=== PATIENT | male | born 1990 | race Caucasian/White ===

== ENCOUNTER 2023-10-20 20:13 | Emergency (ER) | payer BC, SELFPAY ==
--- NOTE | 2023-10-20 20:16 | ED_ITS ---
<Statement entered by Jameel Cazares MD - 10/20/23 22:29> I was consulted by the JOHANNA, and we discussed the complexity of the problems being addressed. I approved the treatment and management plan for this patient's care in the emergency department, thus performing a substantive portion of the medical decision making. Jameel Cazares MD Discharge Plan Disposition Patient Disposition: Home, Self-Care Condition: Good Prescriptions Prescriptions: New ondansetron 4 mg tablet,disintegrating 4 mg PO Q6H PRN (Reason: nausea and vomiting) Qty: 10 0RF No Action rivaroxaban 15 MG tablet 15 mg PO BID 21 Days Qty: 42 0RF Referrals Follow up/Referrals: Dimas Guy MD [Primary Care Provider] - See instructions Activity Restrictions/Add. Instructions Additional Instructions/Restrictions: Follow-up with PCP this week for lab recheck or as needed. Return to emergency department for any worsening signs or symptoms as needed. Clinical Impressions Clinical Impression: Nausea vomiting and diarrhea Instructions Patient Instructions: DI for Acute Abdominal Pain Discharge ED Provider: Jameel Cazares General Adult HPI General Chief complaint: Abdominal Pain Stated complaint: vomiting, diarrhea, abd pain, poss dehydration Time Seen by Provider: 10/20/23 20:16 History of Present Illness HPI narrative: Patient presents for evaluation of nausea vomiting diarrhea abdominal pain. Patient gives a 4-hour history of nausea vomiting and diarrhea to many times to count in the last 4 hours. Patient also reports that his entire abdomen hurts but he is focally tender in the right lower quadrant currently. Related Data Previous Rx's Medication Instructions Recorded rivaroxaban 15 mg tablet 15 mg PO BID 21 days #42 tabs 01/08/19 ondansetron 4 mg disintegrating 4 mg PO Q6H PRN nausea and 10/20/23 tablet vomiting #10 tabs Allergies Allergy/AdvReac Type Severity Reaction Status Date / Time Penicillins Allergy Verified 05/30/18 15:05 [facility] Disclaimer: The information contained in this section may have been updated after the patient was seen, as this information can be updated by other users. Social History Smoking Status: Never smoker alcohol intake: never current occupational status: employed Travel in the last 8 weeks: None household members: family housing: house ROS Obtained: Yes Systems reviewed as appropriate & no additional complaints except as documented Physical Exam General General appearance: alert, in no apparent distress and anxious Respiratory Respiratory exam: Present normal lung sounds bilaterally and respiratory distress Cardiovascular Cardiovascular exam: Present normal rhythm and tachycardia Abdominal Exam Abdominal exam: Present soft, tenderness (Patient has mild tenderness to palpation everywhere but focally so in the right lower quadrant currently) and normal bowel sounds; Absent guarding, rebound or rigidity Extremities Exam Extremities exam: Present full ROM and tenderness (Muscle cramps in his hands and feet); Absent normal inspection (Patient has carpopedal spasm currently) Back Exam Back exam: Present normal inspection and full ROM; Absent tenderness Neurological Exam Neurological exam: Present alert and oriented X3 Psychiatric Psychiatric exam: Present agitated and anxious Medical Decision Making Medical Records Medical records reviewed: Yes I reviewed the patient's medical records. Tadeo Inquiry Pt receiving controlled substance: No Vital Signs: 10/20/23 20:22 Temperature 98.9 F Temperature Source Oral Pulse Rate [Apical] 134 H Respiratory Rate 22 Blood Pressure [Right Arm] 103/68 L Blood Pressure Mean [Right Arm] 79 Blood Pressure Source [Right Arm] Automatic Cuff Blood Pressure Position [Right Arm] Sitting 02 Sat by Pulse Oximetry 100 Oxygen Delivery Method Room Air Lab Data Lab results reviewed: Yes I reviewed the patient's lab results. Lab Results 10/20/23 20:20: VBG pH 7.39, VBG pCO2 44.5, VBG pO2 32.4, VBG HCO3 26.4, VBG Total CO2 27.8 H, VBG O2 Saturation 60.9, VBG Base Excess 1.4, VBG Lactic Acid 4.2 H 10/20/23 20:30: WBC 14.4 H, RBC 6.03, Hgb 18.6 H, Hct 55.0 H, MCV 91.2, MCH 30.3, MCHC 33.2, RDW 14.2, Plt Count 311, MPV 8.2, Neut % (Auto) 89.5 H, Lymph % (Auto) 3.9 L, Jay % (Auto) 4.1, Eos % (Auto) 2.1, Baso % (Auto) 0.4, Neut # (Auto) 12.9 H, Lymph # (Auto) 0.6 L, Jay # (Auto) 0.6, Eos # (Auto) 0.3, Baso # (Auto) 0.1, Total Counted 100, Neutrophils % (Manual) 87 H, Lymphocytes % (Manual) 8 L, Atypical Lymphs % 3.0, Monocytes % (Manual) 2, Platelet Estimate Normal, RBC Morphology Normal, Lactate 3.5 H 10/20/23 21:15: Sodium 140, Potassium 3.2 L, Chloride 98, Carbon Dioxide 24, A nion Gap 21.2 H, BUN 14, Creatinine 1.20, Estimated Creat Clear 92, Estimated GFR 71, Est GFR ( Amer) 85, Glucose 119 H, Calcium 9.5, Magnesium 1.7, Total Bilirubin 1.3, AST 32, ALT 30, Alkaline Phosphatase 99, Total Creatine Kinase 64, Total Protein 7.8, Albumin 4.9, Globulin 2.9, Albumin/Globulin Ratio 1.7, Lipase 66 10/20/23 21:35: Urine Color Yellow, Urine Appearance Clear, Urine pH 7.0, Ur Specific Kress 1.010, Urine Protein 1+, Urine Glucose (UA) Negative, Urine Ketones 1+, Urine Blood Negative, Urine Nitrate Negative, Urine Bilirubin 1+ A, Urine Urobilinogen 0.2, Ur Leukocyte Esterase Negative, Urine RBC None, Urine WBC 3-5, Ur Squamous Epith Cells Occasional, Urine Bacteria 1+ 10/20/23 20:30 10/20/23 21:15 Orders (Tests/Meds): ED MEDICATIONS Generic Name Dose Route Start Last Admin Trade Name Freq PRN Reason Stop Dose Admin Lactated Ringer's 2,260 mls @ 1,130 mls/hr 10/20/23 21:08 10/20/23 21:17 Lactated Ringer's 1000 Ml Bag 30 ml/kg infuse over 2 hr (2260 ml) 10/20/23 23:07 1,130 mls/hr IV Administration .Q2H ONE Potassium Chloride 60 meq 10/20/23 22:05 Potassium Chloride 20meq Tab PO 10/20/23 22:06 ONCE ONE Sodium Chloride 10 ml 10/20/23 20:23 Sodium Chloride 0.9% 10ml Vial IV 11/19/23 20:22 NEEDED PRN to Dilute Lorazepam inj Sodium Chloride 10 ml 10/20/23 20:46 10/20/23 20:48 Sodium Chloride 0.9% 10ml Syr (Rad Only) IV 11/19/23 20:45 10 ml NEEDED PRN Administration Maintain IV Site Discontinued Medications Generic Name Dose Route Start Last Admin Trade Name Freq PRN Reason Stop Dose Admin Acetaminophen 1,000 mg 10/20/23 20:19 10/20/23 20:53 Acetaminophen 1,000mg/100ml Vial IV 10/20/23 20:20 1,000 mg ONCE ONE Administration Lactated Ringer's 1,000 mls @ 999 mls/hr 10/20/23 20:19 10/20/23 21:09 Lactated Ringer's 1000 Ml Bag IV 10/20/23 21:19 Not Given .Q1H1M ONE Iopamidol 75 ml 10/20/23 20:46 10/20/23 20:48 Iopamidol-370 (76%);100ml Bottle IV 10/20/23 20:47 75 ml ONCE ONE Administration Ketorolac Tromethamine 15 mg 10/20/23 20:19 10/20/23 20:53 Ketorolac 30mg/Ml Vial IV 10/20/23 20:20 15 mg ONCE ONE Administration Lorazepam 1 mg 10/20/23 20:23 10/20/23 21:07 Lorazepam 2mg/Ml Vial IV 10/20/23 20:24 Not Given ONCE ONE Ondansetron HCl 4 mg 10/20/23 20:19 10/20/23 20:50 Ondansetron 4mg Odt SL 10/20/23 20:20 Not Given ONCE ONE Ondansetron HCl 4 mg 10/20/23 20:51 10/20/23 20:53 Ondansetron 4mg/2ml Vial IV 10/20/23 20:52 4 mg ONCE ONE Administration ORDERS Category Date Time Status CT abdomen pelvis w con Stat Cat Scan 10/20/23 20:23 Completed Activated Partial Thrombo Time Stat Lab 10/20/23 21:10 Ordered CBC w/Auto Diff [Complete Blood Count Auto Diff] Stat Lab 10/20/23 20:30 Completed CK [Creatine Kinase] Stat Lab 10/20/23 21:15 Results CMP [Comprehensive Metabolic Panel] Stat Lab 10/20/23 21:15 Results Diarrhea 23 Panel, PCR Stat Lab 10/20/23 20:36 Received Lactic Acid Stat Lab 10/20/23 20:30 Completed Lipase Stat Lab 10/20/23 21:15 Completed Magnesium Stat Lab 10/20/23 21:15 Completed Prothrombin Time INR Stat Lab 10/20/23 21:10 Ordered TSH [Thyroid Stimulating Hormone] Stat Lab 10/20/23 21:15 Results UA [Urinalysis and Microscopic] Stat Lab 10/20/23 21:35 Completed Blood Culture Stat Micro 10/20/23 21:10 Ordered VBG [Venous Blood Gas] Stat RT 10/20/23 20:20 Completed Medical Decision Narrative: In summary patient is a 33-year-old male who presents to the emergency department for evaluation of nausea vomiting diarrhea abdominal pain. Patient is tachycardic normotensive upon arrival, afebrile. Physical exam is remarkable for carpopedal spasm currently abdominal pain diffusely with no rebound guarding or rigidity with normal bowel sounds. Differential diagnosis includes acute gastroenteritis versus acute appendicitis versus hyperventilation versus severe electrolyte depletion etc. Initial workup will be conducted with hematologic labs CT scan abdomen pelvis with contrast. Initial interventions include crystalloid bolus Toradol Tylenol Zofran and Ativan. Initial workup reviewed by me shows a slightly elevated white count but patient is volume contracted as well with a hemoglobin greater than 18, and patient had low potassium of 3.2 otherwise his hematologic labs are nonactionable and my informal read of the CT scan of the abdomen pelvis shows nonspecific enteritis with radiologist read pending. Upon repeat evaluation patient has had complete resolution of his carpopedal spasm and his nausea and vomiting has abated significantly as well. Patient is tolerating p.o. and his heart rate has come down to under 100. Given this patient is appropriate for discharge for home with prescription for Zofran. Critical Care Critical Care Time Critical Care Time: No
[2023-10-20 20:22] VITALS: BP 103/68; PULSE 134; RESP 22; TEMP 37.2; O2SAT 100; BMI 22.3
--- NOTE | 2023-10-20 20:23 | CT_ITS ---
PROCEDURE INFORMATION: Exam: CT Abdomen And Pelvis With Contrast Exam date and time: 10/20/2023 8:36 PM Age: 33 years old Clinical indication: Abdominal pain; Additional info: Acute abdominal pain, nvd TECHNIQUE: Imaging protocol: Computed tomography of the abdomen and pelvis with contrast. Radiation optimization: All CT scans at this facility use at least one of these dose optimization techniques: automated exposure control; mA and/or kV adjustment per patient size (includes targeted exams where dose is matched to clinical indication); or iterative reconstruction. Contrast material: ISOVUE; Contrast volume: 75 ml; Contrast route: IV; COMPARISON: CT ANGIO CHEST 01/08/2019 12:45 FINDINGS: Heart: Tiny pericardial effusion, unchanged. Liver: Low attenuation hepatic lesions measuring up to 4 mm in diameter are incompletely characterized, but are likely cysts. No followup imaging is recommended. Gallbladder and bile ducts: Normal. No calcified stones. No ductal dilation. Pancreas: Normal. No ductal dilation. Spleen: Normal. No splenomegaly. Adrenal glands: Normal. No mass. Kidneys and ureters: Duplex right kidney. Stomach and bowel: Dilated segments of fluid-filled small bowel without a transition point. Bowel wall thickening of portions of small bowel and colon. Liquid fecal contents in the colon, which could correlate with diarrhea clinically. Appendix: Unremarkable appendix. Intraperitoneal space: Unremarkable. No free air. No significant fluid collection. Vasculature: Unremarkable. No abdominal aortic aneurysm. Lymph nodes: Unremarkable. No enlarged lymph nodes. Urinary bladder: Unremarkable as visualized. Reproductive: Unremarkable as visualized. Bones/joints: Unremarkable. No acute fracture. Soft tissues: Unremarkable. IMPRESSION: Enterocolitis.
[2023-10-20 20:40] LABS: Basophils # 0.1 K/mm3 (0-0.2); Basophils % 0.4 % (0.1-2.0); Eosinophils # 0.3 K/mm3 (0.0-0.4); Eosinophils % 2.1 % (0.1-12.0); Lymphocytes # 0.6 K/mm3 (0.7-4.5); Lymphocytes % 3.9 % (10-50); Mean Corpuscular HGB Conc 33.2 g/dL (31.8-35.4); Mean Corpuscular Hemoglobin 30.3 pg (27.0-31.2); Mean Corpuscular Volume 91.2 fl (80-94); Mean Platelet Volume 8.2 fl (7.4-10.4); Monocytes # 0.6 K/mm3 (0.1-1.0); Monocytes % 4.1 % (1.7-9.3); Neutrophils # 12.9 K/mm3 (1.8-7.8); Neutrophils % 89.5 % (37.0-80.0); Platelet Count 311 K/mm3 (142-424); Red Blood Count 6.03 M/mm3 (4.60-6.20); Red Cell Distribution Width 14.2 % (11.5-17.5); White Blood Count 14.4 K/mm3 (4.8-10.8)
[2023-10-20 20:43] LABS: Adenovirus F 40/41, stool Not Detected (NotDetected); Astrovirus Not Detected (NotDetected); Campylobacter Not Detected (NotDetected); Clostridium Difficile A/B, PCR Not Detected (NotDetected); Cryptosporidium Not Detected (NotDetected); Cyclospora Cayetanesis Not Detected (NotDetected); Entamoeba histolytica Not Detected (NotDetected); Enteroaggregative E coli Not Detected (NotDetected); Enteropathogenic E coli Not Detected (NotDetected); Enterotoxigenic E coli Not Detected (NotDetected); Giardia lamblia Not Detected (NotDetected); Plesimonas Shigalloides, PCR Not Detected (NotDetected); Rotavirus A Not Detected (NotDetected); Salmonella, PCR Not Detected (NotDetected); Sapovirus Not Detected (NotDetected); Shiga-like toxin E coli Not Detected (NotDetected); Shigella Enterovasive E coli Not Detected (NotDetected); Vibrio Cholerae Not Detected (NotDetected); Vibrio, PCR Not Detected (NotDetected); Yersinia Entercolitica, PCR Not Detected (NotDetected)
[2023-10-20 20:47] LABS: Lactic Acid 3.5 mmol/L (0.7-2.1); MANUAL DIFFERENTIAL MANUAL DIFFERENTIAL (MANUAL DIFF)
[2023-10-20] MEDS: IOPAMIDOL-370 (76%);100ML BOTTLE 75 ML IV (20:48)
[2023-10-20] MEDS: SODIUM CHLORIDE 0.9% 10ML SYR (RAD ONLY) 10 ML IV (20:48)
[2023-10-20] MEDS: ONDANSETRON 4MG/2ML VIAL 4 MG IV (20:53)
[2023-10-20] MEDS: KETOROLAC 30MG/ML VIAL 15 MG IV (20:53)
[2023-10-20] MEDS: ACETAMINOPHEN 1,000MG/100ML VIAL 1000 MG IV (20:53)
--- NOTE | 2023-10-20 20:58 | PC.NURSE ---
called resp for vbg
[2023-10-20 20:59] LABS: VBG Base Excess 1.4 mmol/L (-2.4-2.3); VBG HCO3 26.4 mmol/L (23-30); VBG Oxygen Saturation 60.9 % (50-70); VBG PCO2 44.5 mmol/L (35-51); VBG PH 7.39 mmol/L (7.31-7.41); VBG PO2 32.4 mmol/L (28-40); VBG Total CO2 27.8 mmol/L (23-27)
[2023-10-20 21:00] LABS: Lactate Venous 4.2 mmol/L (0.4-2.0)
--- NOTE | 2023-10-20 21:09 | PC.NURSE ---
notified of sepsis risk
[2023-10-20] MEDS: LACTATED RINGERS 1000ML 2,260 ML 1130 ML IV (21:17)
[2023-10-20 21:33] LABS: Lymphocytes % 8 % (10-50); Monocytes % 2 % (2-9); Neutrophils % 87 % (42-76); Platelet Estimate Normal; RBC Morphology Normal; Total Cells Counted 100
[2023-10-20 21:37] LABS: Alanine Aminotransferase 30 U/L (12-78); Albumin Level 4.9 g/dl (3.5-5.0); Albumin/Globulin Ratio 1.7 (1.1-1.8); Alkaline Phosphatase 99 U/L (38-126); Anion Gap 21.2 mEq/L (5-15); Aspartate Amino Transferase 32 U/L (17-59); Bilirubin,Total 1.3 mg/dl (0.2-1.3); Blood Urea Nitrogen 14 mg/dl (9-20); Calcium 9.5 mg/dl (8.4-10.2); Carbon Dioxide 24 mmol/L (22.0-30.0); Chloride 98 mmol/L (98-107); Creatine Kinase 64 U/L (55-170); Creatinine Clearance Estimated 92 mL/min (50-200); Estimated Glomerular Filt Rate 71 ml/min (>60); GFR (African American) 85 ML/MIN (>60); Globulin 2.9 g/dL (1.3-3.2); Glucose 119 mg/dl (74-100); Potassium 3.2 mmoL/L (3.5-5.1); Sodium 140 mmol/L (136-145); Total Protein,Serum 7.8 g/dl (6.3-8.2)
[2023-10-20 21:38] LABS: Microscopic, Urine URINE MICROSCOPIC (MICROSCOPIC)
[2023-10-20 21:41] VITALS: BP 99/66; PULSE 103; RESP 14; O2SAT 98
[2023-10-20 21:41] LABS: Appearance,Urine CLEAR (Clear); Blood, Urine Negative (Negative); Color,Urine YELLOW (Yellow); Glucose,Urine (UA) Negative (Negative); Ketones,Urine 1+ (Negative); Leukocyte Esterase,Urine Negative (Negative); Nitrate,Urine Negative (Negative); Protein,Urine 1+ (Negative); Urobilinogen,Urine 0.2 EU/dl (0.2)
[2023-10-20 21:44] LABS: Lipase 66 U/L (23-300)
[2023-10-20 21:45] LABS: Magnesium 1.7 mg/dl (1.6-2.3)
[2023-10-20 21:48] LABS: Hemoglobin 18.6 g/dL (14.1-18.0)
[2023-10-20 22:00] VITALS: BP 103/74; PULSE 84; RESP 10; O2SAT 97
[2023-10-20 22:00] LABS: Bacteria,Urine 1+ /lpf; Bilirubin,Urine 1+ (Negative); Squamous Epithelial Cell,Urine Occasional #/hpf (0-5)
[2023-10-20 22:09] LABS: Thyroid Stimulating Hormone 0.62 uIU/mL (0.465-4.68)
[2023-10-20] MEDS: POTASSIUM CHLORIDE 20MEQ TAB 60 MEQ PO (22:15)
[2023-10-20 22:23] VITALS: BP 103/74; PULSE 100; RESP 14; TEMP 37.2; O2SAT 97
[2023-10-20 22:31] LABS: Activated Partial Thrombo Time 24.6 seconds (22.8-30.6); INR 1.11 (0.9-1.1); Prothrombin Time 11.9 seconds (10.1-12.5)
[2023-10-20 22:36] LABS: Norovirus Detected (NotDetected)
--- NOTE | 2023-10-20 22:42 | PC.NURSE ---
Lab called the ED to notify of a positive result on a diarrhea panel, patient tested positive for norovirus. Patient was contacted and notified of this result.
== END 2023-10-20 22:25 | disposition home or self-care (01) ==
PROVIDERS: Physician Assistant; Emergency Provider Emergency Medicine; PCP Internal Medicine Adolescent Medicine
DX: A08.11 Acute gastroenteropathy due to Norwalk agent (principal); R10.817 Generalized abdominal tenderness; R11.2 Nausea with vomiting, unspecified; E87.6 Hypokalemia; R74.02 Elevation of levels of lactic acid dehydrogenase [LDH]
CPT/HCPCS: 36415; 74177; 80053; 81001; 82550; 82803; 83605; 83690; 83735; 84443; 85007; 85025; 85610; 85730; 87040; 87507; 96361; 96374; 96375; 99285; J0131; J2405; Q9967

== ENCOUNTER 2024-08-18 10:29 | Day surgery (SDC) | payer BC, SELFPAY ==
[2024-08-17 10:32] VITALS: BMI 22.7
[2024-08-18 10:45] VITALS: BP 122/89; PULSE 92; RESP 20; TEMP 37.2; O2SAT 97
--- NOTE | 2024-08-18 10:56 | P.PNANES_ITS ---
[facility] Disclaimer: The information contained in this section may have been updated after the patient was seen, as this information can be updated by other users. Medical History Hx of deep venous thrombosis Family History Grandmother Lymphoma Social History Smoking Status: Former smoker tobacco type: smokeless tobacco alcohol intake: current alcohol intake frequency: holidays/special occasions only substance use type: denies use current occupational status: employed Travel in the last 8 weeks: None household members: family housing: house [facility] Anesthesia Checklist Patient Identification Patient Identification: Arm Band Structural Data Admitted From: Home Planned Operative Procedure/s: Colonoscopy Consent for Planned Operative Procedure(s) Verified: Yes Verified Documents: Surgical Consent and History and Physical NPO Status Verified Time NPO: 00:00 Additional verifications Anesthesia Reactions: No Airway Assessment Mallampati Score:: Class II C-Spine Mobility Assessed: Yes TMJ Mobility Assessed: Yes Dentition: Good Dentition Neurological Assessment Level of Consciousness: Awake, Alert and Appropriate Anesthesia Plan Anesthesia Risk discussed: Yes Anesthesia Plan: Verified ASA Class: II Anesthesia Type: MAC
--- NOTE | 2024-08-18 10:59 | P.HP_ITS ---
HPI HPI HPI: This is a 34-year-old gentleman who presents for colonoscopy as part of evaluation for recent significant weight loss. [facility] Disclaimer: The information contained in this section may have been updated after the patient was seen, as this information can be updated by other users. Medical History (Updated 08/18/24 @ 11:00 by Maurilio Lopez MD) Hx of deep venous thrombosis Family History Lymphoma Grandmother Social History (Updated 08/18/24 @ 10:57 by Tomer Marino CRNA) Smoking Status: Former smoker tobacco type: smokeless tobacco alcohol intake: current alcohol intake frequency: holidays/special occasions only substance use type: denies use current occupational status: employed Travel in the last 8 weeks: None household members: family housing: house Have you lived/traveled outside [place] in past 30 days?: No Contact w/someone who lives/traveled outside [place] past 30 days?: No Exposure to someone with infectious disease in past 14 days?: No Do you have a fever (greater than 100.4 F or 38 C)?: No Have you tested positive for COVID-19: No Exposed to someone with COVID-19 in past 14 days?: No Do you have a sore throat?: No Do you have a cough?: No Do you have any weakness?: No Are you experiencing any nausea/vomitting?: No Do you have any diarrhea?: No Are you experiencing any unusual bleeding?: No Do you have any muscle aches/pain?: No Do you have any abdominal pain?: No Are you experiencing loss of taste or smell?: No Other Medical History Have you received the Flu Vaccine for this season: No Have you received the Pneumonia Vaccine: No Meds Home Medications and Allergies New Prescriptions to Start Prescriptions: Allergies Allergy/AdvReac Type Severity Reaction Status Date / Time Penicillins Allergy Verified 05/30/18 15:05 Exam Data for Last 24 hours Vital signs and Labs for Last 24 Hours: Temp Pulse Resp BP Pulse Ox O2 Del Method 98.9 F 92 H 20 122/89 97 Room Air 08/18/24 10:45 08/18/24 10:45 08/18/24 10:45 08/18/24 10:45 08/18/24 10:45 08/18/24 10:45 I & O for Last 24 hours: Intake & Output 08/15/24 08/16/24 08/17/24 08/18/24 11:59 11:59 11:59 11:59 Weight 163 lb Constitutional Constitutional: no acute distress *Routine HEENT Exam Head: Present normocephalic Eye: Present EOMI ENT: Present mucous membranes moist *Routine Neck Exam Neck: Present full ROM *Routine Respiratory Exam Respiratory: Absent respiratory distress *Routine Cardiovascular Exam Cardiovascular: Absent tachycardia *Routine Abdominal Exam Abdominal: Present soft *Routine Rectal Exam Rectal:: deferred *Routine Genitalia Exam Genitalia:: deferred *Routine Extremities Exam Extremities: Present full ROM *Routine Neurological Exam Neurological: Present alert Routine Psychiatric Exam Psychiatric: Present normal affect Assessment and Plan *Assessment and plan (1) Weight loss, non-intentional: Status: Acute Category: Medical Code(s): R63.4 - Abnormal weight loss Plan: Colonoscopy today I have discussed the risks and benefits including, but not limited to: Bleeding Infection Damage to surrounding tissue Inherent risks of sedation The patient agrees to proceed.
[2024-08-18 11:05] VITALS: O2SAT 97
--- NOTE | 2024-08-18 11:28 | P.PCN_ITS ---
Procedure: Date: 08/18/24 Patient Date of :: 1990 Procedure Performed:: Colonoscopy Indications:: Weight loss Performing Provider:: Maurilio Lopez MD Referring Provider:: . Sedation:: Monitored anesthesia care Procedure:: After informed consent was obtained the patient was taken to the endoscopy suite. Sedation ensued after the patient was transferred to the left lateral decubitus position. Pulse, blood pressure, and oxygen saturation were monitored throughout the procedure. Digital rectal exam revealed no significant abnormality. The colonoscope was placed in position. The entire colon was ev aluated. The colonoscope was carefully removed and the patient was transferred to recovery in stable condition. Please see findings and specimens below for detail. Findings:: Bowel preparation moderate Hemorrhoidal cushions Moderate spasticity Significant tortuosity Transient inspection of terminal ileum revealed no significant abnormality Specimens:: None Recommendations:: Repeat colonoscopy as per standard recommendations at the age of 45 (unless otherwise indicated). Continue evaluation with regard to weight loss as per his primary care provider. Complications:: No immediate Estimated blood obtained (mL): 0 Colonoscopy Component Colonoscopy Component Was a colonoscopy performed during today's procedure?: Yes Recommended follow up colonoscopy of at least 10 years?: Yes
[2024-08-18 11:32] VITALS: BP 121/99; PULSE 74; RESP 14; TEMP 36.1; O2SAT 98
[2024-08-18 11:42] VITALS: BP 121/69; PULSE 83; RESP 16; O2SAT 100
[2024-08-18 11:52] VITALS: BP 134/98; PULSE 84; RESP 16; O2SAT 100
[2024-08-18 12:02] VITALS: BP 142/69; PULSE 80; RESP 16; O2SAT 100
== END 2024-08-18 12:02 | disposition home or self-care (01) ==
PROVIDERS: PCP Internal Medicine Adolescent Medicine; Visit Provider Surgery
PROC: 0DJD8ZZ Inspection of Lower Intestinal Tract, Via Natural or Artificial Opening Endoscopic (ICD-10-PCS; CPT 45378; principal; 2024-08-18 11:30)
DX: K64.9 Unspecified hemorrhoids (principal); R63.4 Abnormal weight loss; Z68.22 Body mass index [BMI] 22.0-22.9, adult
CPT/HCPCS: 45378; J2704